=== PATIENT | male | born 1965 | race American Indian/Alaskan Native ===

== ENCOUNTER 2020-11-23 05:26 | Emergency (ER) | payer SELFPAY ==
[2020-11-23 07:03] VITALS: BP 142/92
[2020-11-23] MEDS ORDERED: IBUPROFEN 800 MG TAB PO ONE (07:32)
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
== END 2020-11-23 08:57 | disposition home or self-care (01) ==
LOC: ED 05:26
DX: M62.838 Other muscle spasm (principal); Z79.899 Other long term (current) drug therapy; V49.49XA Driver injured in collision with other motor vehicles in traffic accident, initial encounter; Y93.89 Activity, other specified; Y92.488 Other paved roadways as the place of occurrence of the external cause; Y99.8 Other external cause status
CPT/HCPCS: 72040; 99283